=== PATIENT | male | born 1970 | race African-American/Black ===

== ENCOUNTER 2016-09-12 16:45 | Inpatient (IN) | payer BC, SELFPAY ==
--- NOTE | ~2016-09-12 | DS ---
Discharge Summary [id number] [place]. [address] NAME: KINGA DUDLEY : 72 STATUS : DIS IN PAT#: [id number] AGE: 46 ADM/REG DATE : 09/12/16 MR#: [id number] REPORT SERV DATE: 09/16/16 DICTATED BY: DATE: REPORT STATUS : Draft TRANSCRIBED BY: MODL DATE: 09/15/16 ADMISSION DATE: 09/12/2016 DISCHARGE DATE: 09/15/2016 DISCHARGE DIAGNOSES: 1. Clostridium difficile, first episode. 2. Chronic anemia. 3. Intermittent rectal bleeding. 4. Acute left upper quadrant abdominal pain, improving. 5. Chronic kidney disease, stage 3. 6. Hypertension. 7. Type 2 diabetes, non insulin dependent. 8. Chronic obstructive pulmonary disease. 9. History of seizures. CONSULTATION: NAWAF Huerta. PERTINENT TESTS AND PROCEDURES: 1. Chest x-ray, 09/12/2016; Impression: No acute process. Chronic eventration of right diaphragm. Lungs are clear. 2. CT of brain without contrast, 09/12/2016; Impression: Unremarkable noncontrast head CT. No acute intracranial pathology. 3. CT of abdomen and pelvis, 09/13/2016; Impression:. a. No evidence of acute abnormality within the abdomen or pelvis. b. Hepatomegaly. c. Left renal cyst. d. Postsurgical distortion of anterior abdominal wall. 4. Transthoracic echocardiography, 09/13/2016; Summary: Technically difficult study due to poor acoustic windows. Normal left ventricular systolic function with ejection fraction of 60% to 65%. Normal right ventricular chamber size and systolic function. No evidence of significant valvular regurgitation or stenosis. Atrial septal aneurysm without clear evidence of patent foramen ovale or atrial septal defect. 5. KUB, 09/14/2016, written report unavailable. Image reviewed by Dr. Roca. Impression: Unremarkable bowel gas pattern. HOSPITAL COURSE: Please refer to history and physical dated 09/12/[address] Lashawn Pugh for complete details pertaining to the patient's initial presentation upon admission and health history. Also refer to consultation dated 09/14/[address] Ileana Cisneros GI. Briefly, the patient is a 46-year-old male with a complex medical history to include chronic anemia with intermittent rectal bleeding, chronic diarrhea, COPD, seizures, hypertension, and chronic kidney disease stage 3. The patient presented to the emergency department on 09/12/2016 with complaints of chronic Discharge Summary [address] [place]. [address] NAME: KINGA DUDLEY : 72 STATUS : DIS IN PAT#: [id number] AGE: 46 ADM/REG DATE : 09/12/16 MR#: [id number] REPORT SERV DATE: 09/16/16 DICTATED BY: DATE: REPORT STATUS : Draft TRANSCRIBED BY: MODL DATE: 09/15/16 diarrhea, low blood pressure and increase in intermittent rectal bleeding. The patient was admitted for further evaluation and workup for likely GI bleed. 1. Clostridium difficile, first episode. The patient denied any recent use of antibiotics. The patient has suffered from chronic diarrhea since 2013 secondary to episode of severe pancreatitis with end-organ failure. The patient was started on p.o. Vancocin 125 mg p.o. every six hours and will continue this medication to complete a total 14-day course. The patient is to follow up with GI in two weeks for consideration of outpatient colonoscopy once infection has cleared. 2. Intermittent rectal bleeding. The patient has history of iron deficiency anemia in the setting of intermittent rectal bleeding. Past endoscopies have been nondiagnostic. The patient has not had any episodes of bleeding for the past 48 hours and Hemoccult during this admission was negative. Follow up in two weeks with GI. 3. Chronic anemia. The patient has longstanding history of chronic anemia. Hemoglobin and hematocrit have remained stable during this admission and no transfusions have been required. This will be managed per Nephrology and GI. 4. Chronic kidney disease, stage 3. The patient's creatinine during last office visit in July [address] Arteaga, Nephrology, was 2.2. The patient's creatinine is 1.73 and below baseline on day of discharge. The patient recently saw Dr. Arteaga in July and will follow up again in September. 5. Hypertension. The patient's blood pressure has remained controlled. Continue home medications. 6. Type 2 diabetes. The patient's A1c is 6.3, which is significant improvement from 13.0 in 2014. Continue home medications and follow up for routine management. 7. COPD. No signs or symptoms of acute exacerbation during this admission. The patient is seen by Dr. Flores, Pulmonology. Last office visit was in May 2016. The patient will follow up again in November. 8. History of seizures. The patient has a lifetime history of seizures with breakthrough seizures on current medication. The patient has not driven since the . There were no episodes during this admission. Follow up with Dr. Farfan, Neurology, as routinely scheduled. DISCHARGE CONDITION: At the time of discharge, the patient is hemodynamically stable. DISCHARGE DIET: ADA 1800 calorie diet. DISCHARGE MEDICATIONS: 1. Norvasc 10 mg tablet p.o. daily. 2. Wellbutrin SR 150 mg p.o. daily. 3. Cymbalta 60 mg tablet p.o. at bedtime as needed for insomnia per the patient's report. 4. Tegretol XR 400 mg tablet, take 800 mg twice daily. 5. Keppra 1000 mg tablet, take 1500 mg p.o. twice daily. 6. Fenofibrate 160 mg tablet p.o. daily. 7. Neurontin 800 mg tablet p.o. four times daily. 8. Synthroid 50 mcg tablet p.o. daily. 9. Lopressor 50 mg tablet p.o. twice daily. 10.Protonix 40 mg tablet p.o. twice daily. 11.Phenobarbital 32.4 mg tablet, take 129.6 mg p.o. at bedtime. Discharge Summary [address] [address] NAME: KINGA DUDLEY : 72 STATUS : DIS IN PAT#: [id number] AGE: 46 ADM/REG DATE : 09/12/16 MR#: [id number] REPORT SERV DATE: 09/16/16 DICTATED BY: DATE: REPORT STATUS : Draft TRANSCRIBED BY: MODL DATE: 09/15/16 12.Vancocin 125 mg capsules p.o. every six hours x14 days. 13.ProAir two puffs inhaled every four hours as needed for wheezing or shortness of breath. 14.Albuterol nebulizer treatment 3 times daily as needed. 15.Tylenol 650 mg p.o. every four hours as needed. 16.Glucophage 500 mg tablet p.o. twice daily. 17.Robaxin 750 mg tablet p.o. every six hours as needed. 18.Cozaar 100 mg tablet p.o. daily. 19.Fioricet 1 to 2 tablets p.o. every four hours as needed for headache. 20.Vitamin D 5000 units p.o. twice daily. 21.Magnesium oxide 400 mg tablet p.o. twice daily. 22.Percocet 10/325 mg tablet p.o. every six hours as needed. Hold for sedation. 23.Atarax 25 mg tablet p.o. every six hours as needed. 24.Invokana 300 mg tablet p.o. daily. 25.Creon 73668 unit capsule, take 227319 units p.o. three times daily with meals and twice daily with snacks. 26.Breo Ellipta 100/25 mcg inhaler one puff inhaled daily. DISCHARGE INSTRUCTIONS: 1. Follow up with Dr. Brock/Dr. Cisneros, GI, in two weeks for consideration of colonoscopy. 2. Follow up with Dr. Flores, Pulmonology, appointment already scheduled. 3. Follow up with Dr. Mohamud Arteaga, Nephrology, appointment already scheduled. 4. Follow up with Dr. Mullen, Neurology, in November. The patient was instructed to return to the emergency room for any acute onset of fever 100.4 or greater lasting more than one hour, recurrence of uncontrolled diarrhea, bright red blood per rectum, intractable nausea, vomiting, or any other concerns that are deviations from his baseline status at the time of this discharge. DICTATED BY: MILLA Gore/AURELIA MILLA Gore / [id number] CC: MD Kota Aden II, M.D. Henry Paik, M.D. Catherine Martinez, M.D. James Scott Manton, M.D. Discharge Summary [address] [address] NAME: KINGA DUDLEY : 72 STATUS : DIS IN PAT#: [id number] AGE: 46 ADM/REG DATE : 09/12/16 MR#: [id number] REPORT SERV DATE: 09/16/16 DICTATED BY: DATE: REPORT STATUS : Draft TRANSCRIBED BY: AURELIA DATE: 09/15/16 Mohamud Arteaga M.D. Ileana Cisneros MD
--- NOTE | ~2016-09-12 | HP ---
History And Physical [facility] [address] [place]. [address] NAME: KINGA DUDLEY : 72 STATUS : ADM IN [facility]#: [id number] AGE: 46 ADM/REG DATE : 09/12/16 MR#: [id number] REPORT SERV DATE: 09/12/16 DICTATED BY: LASHAWN BOLAÑOS DATE: 09/12/16 REPORT STATUS : Draft TRANSCRIBED BY: MODL DATE: 09/12/16 DATE OF ADMISSION: 09/12/2016 CHIEF COMPLAINT: Chronic diarrhea, reported low blood pressure, and intermittent rectal bleed. HISTORY OF PRESENT ILLNESS: This is a very pleasant 46-year-old gentleman. He has an extensive past medical history significant for history of hypertension and chronic kidney disease. He has history of severe pancreatitis, for which he has been admitted in 2014. He had multiorgan failure. At that time, has been tracked he had acute kidney injury requiring dialysis with chronic kidney disease, anemia, also hypertension with prior abdominal compartment syndrome, urinary tract infections, and also an incisional epigastric hernia repair presenting today to [facility] accompanied by his due to ongoing chronic diarrhea, weakness, as well as reported low blood pressure. The patient says that since prior surgery, but lately over the last couple of months, he has been experiencing intermittent episodes of rectal bleed. He has been scoped in 2015 for rectal bleed by Dr. Ileana Cisneros for Dr. Brock and at that time, the result of the colonoscopy showed some anal fissure, for which he has been treated symptomatically. Nevertheless, after talking with his primary care provider, the patient came to [facility] for further evaluation and treatment. He has been evaluated in the emergency room and after initial evaluation, Hospitalist Service has been asked for admission, further evaluation, and treatment. PAST MEDICAL HISTORY: Significant for prior history of severe pancreatitis with compartment syndrome; chronic kidney disease; prior history of UTI; diabetes type, not on insulin; seizure disorder, on multiple medications; hypertension; and anemia. PAST SURGICAL HISTORY: Includes prior exploratory laparotomy with compression of the abdomen, wound Vac-Pac exchange, also cholecystectomy. Also, he had an incisional hernia in the epigastrium that has been repaired with mesh. SOCIAL HISTORY: The patient has been denying tobacco, alcohol, or IV drugs. ALLERGIES: HE IS ALLERGIC TO INFLUENZA. MEDICATIONS: Medications at home include ProAir, albuterol, Norvasc, Fioricet, Wellbutrin, Invokana, Tegretol, vitamin D, Cymbalta, fenofibrate, Breo Ellipta, gabapentin, Atarax, Keppra, levothyroxine, losartan, magnesium oxide, metformin, methocarbamol, metoprolol, Percocet, Protonix, phenobarbital, and Creon. REVIEW OF SYSTEMS: A 14-point review of system has been obtained and pertinent positive has been listed into the history of present illness, otherwise negative except those underlying above. OBJECTIVE: VITAL SIGNS: The patient is afebrile, blood pressure 112/62, heart rate 75, respiratory rate 16, and saturating 100% on room air. GENERAL: He is a very pleasant, well-developed, well-nourished gentleman, in no acute History And Physical [address] [address] NAME: KINGA DUDLEY : 72 STATUS : ADM IN [facility]#: [id number] AGE: 46 ADM/REG DATE : 09/12/16 MR#: [id number] REPORT SERV DATE: 09/12/16 DICTATED BY: LASHAWN BOLAÑOS DATE: 09/12/16 REPORT STATUS : Draft TRANSCRIBED BY: AURELIA DATE: 09/12/16 distress. He is alert and oriented x3. Nonfocal. He follows all his commands appropriately. HEENT: Shows pupils equal, round, reactive to light. Extraocular movements intact. No JVD. No lymphadenopathy. No thyromegaly appreciated. CHEST: Eval shows bilateral air entry. Clear anteroposterior. No wheezes, crackles, or rhonchi appreciated. CARDIOVASCULAR: He is regular rate and rhythm. S1, S2 positive. No S3, no S4. No murmurs, rubs, or gallops appreciated. ABDOMEN: Soft, nontender. Nontender. No guarding. No rebound. Nondistended. Well-healed scars. EXTREMITIES: No clubbing, cyanosis, or edema. NEUROLOGIC: He is alert and oriented x3. He is nonfocal. He follows all his commands appropriately. LABORATORY DATA: Labs from today include sodium 134, potassium 4.9, chloride 99, CO2 of 29, BUN 19, creatinine is 2.34. His glucose is 127. His troponin is less than 0.02. His white count is 4.9, hemoglobin 9.2, hematocrit 31.7, platelets are 293. His INR is 1. The patient's UA has been negative and chest x-ray PA and lateral is pending. ASSESSMENT: This is a very pleasant 46 years old gentleman with: 1. Mild kgalf-aw-iqofxrd kidney disease. 2. Chronic diarrhea. 3. Anemia with reported intermittent rectal bleeds. 4. History of hypertension. 5. Diabetes type 2, noninsulin dependent. 6. History of seizure disorder reporting seizure uncontrolled even on current medications. 7. Anemia. 8. History of fibromyalgia. 9. History of hypothyroidism. PLAN: The patient is going to be admitted to Hospitalist Service regardin. His mild rknxr-mi-rdgyjwa kidney disease. We are going to give him IV fluids. We will hold his PAULA. We are going to check UA and urine culture. Check a CT of the abdomen and pelvis in the morning. Follow up the labs very closely. 2. Chronic diarrhea with reported intermittent rectal bleeds. We are going to keep him on clear liquid diet. H and H q.6 hours, and transfuse as indicated. Check all anemia studies. Guaiac all his stools. Place him on Protonix IV b.i.d. Check all his stools for fecal leukocytes, bacterial pathogen, C diff, ova and parasites, and consult Gastroenterology, Dr. Brock. 3. History of hypertension. Continue his home medications. The patient has been reported hypotensive today. That has been resolved. We are going to hold his PAULA and we are going to hydrate him and continue his blood pressure as tolerated. We are going to rule him out for WI by serial cardiac enzymes and serial EKG. 4. Diabetes type 2. We are going to hold oral medications and place him on sliding scale insulin subcutaneously level 1. 5. Anemia. We will check all his anemia studies and check vitamin B12 and folic acid. 6. History of hypothyroidism. Continue his home medication. Check a TSH and a free T4. History And Physical [address] [address] NAME: KINGA DUDLEY : 72 STATUS : ADM IN PAT#: [id number] AGE: 46 ADM/REG DATE : 09/12/16 MR#: [id number] REPORT SERV DATE: 09/12/16 DICTATED BY: LASHAWN BOLAÑOS DATE: 09/12/16 REPORT STATUS : Draft TRANSCRIBED BY: MODLam DATE: 09/12/16 7. History of seizure disorder. We will continue his home medications and are going to check a Tegretol and phenobarbital level, p.r.n. Ativan, and consult Neurology for further recommendation. We will provide reasonable pain and nausea control as well as GI and DVT prophylaxis with SCDs. This has been discussed extensively with the patient. All the questions have been answered in full. Further workup and recommendation pending above. It is worthwhile to note that the patient is going to be followed by Hospitalist Service. CF/AURELIA Lashawn Bolaños M.D. / [id number] CC: MD Kota Aden II, M.D.
--- NOTE | ~2016-09-12 | CN ---
Consultation Report [facility] [address] [place]. [address] NAME: KINGA SEVILLA : 72 STATUS : ADM IN PAT#: [id number] AGE: 46 ADM/REG DATE : 09/12/16 MR#: [id number] REPORT SERV DATE: 09/14/16 DICTATED BY: AVI BARRIENTOS DATE: 09/14/16 REPORT STATUS : Draft TRANSCRIBED BY: MODL DATE: 09/14/16 GI CONSULTATION NOTE DATE OF CONSULTATION: 09/13/2016 REASON FOR CONSULTATION: Rectal bleeding, diarrhea. HISTORY OF PRESENT ILLNESS: Mr. Sevilla is a 46-year-old black male with a history of chronic kidney disease, anemia, pancreatitis in the past who was initially admitted for bloody diarrhea. He had a normal white count at 4, hemoglobin and hematocrit of 9.1 and 31.6, platelets 285, INR at 1.1. He reports that he has had diarrhea off and on for few years and had actually been seen by Dr. Brock in 2014, in clinic and has had workup performed including endoscopy, which I have included in his patient chart. Colonoscopy up to the terminal ileum was normal with the exception of some hemorrhoids and anal fissure. No inflammation was seen at the time. He also had diarrhea and anemia, and biopsies were negative for microscopic colitis, celiac disease. Although per his H and P, there is mention of cholecystectomy, the patient denies having had his gallbladder removed. Of note, since admission his stool has come back positive for a C. difficile infection. Noncontrasted CT scan shows no bowel wall thickening or stranding. The patient has been ordered oral vancomycin, which he has yet to start. PAST MEDICAL HISTORY: Hypertension, chronic kidney disease, pancreatitis, urinary tract infection, diabetes, seizure disorder. PAST SURGICAL HISTORY: Exploratory laparotomy?, cholecystectomy, hernia surgery. SOCIAL HISTORY: No smoking, alcohol, or drug use. FAMILY HISTORY: Noncontributory. No history of inflammatory bowel disease. MEDICATIONS: Reviewed. ALLERGIES: REVIEWED. PHYSICAL EXAMINATION: VITAL SIGNS: The patient is afebrile. Vital signs are stable. GENERAL: The patient is awake, alert, and oriented x3. Well developed, well nourished, in no acute distress. HEENT: Atraumatic, normocephalic. Anicteric. Mucous membranes moist. CARDIAC: S1, S2. CHEST: Clear to auscultation bilaterally. ABDOMEN: Soft, nondistended, tender to palpation, however, mostly in the left abdomen without rebound or guarding. Bowel sounds normoactive. Consultation Report [facility] [address] [place]. [address] NAME: KINGA SEVILLA : 72 STATUS : ADM IN PAT#: [id number] AGE: 46 ADM/REG DATE : 09/12/16 MR#: [id number] REPORT SERV DATE: 09/14/16 DICTATED BY: AVI BARRIENTOS DATE: 09/14/16 REPORT STATUS : Draft TRANSCRIBED BY: MODLam DATE: 09/14/16 LABORATORY DATA: Show WBC 4, hemoglobin 9.1, hematocrit 31.6, platelets 285, INR is 1.1. TIBC is 593, ferritin is 6, sodium 131, potassium 4.3, chloride 98, bicarb 26, BUN 17, creatinine 2.04, glucose 101. Liver enzymes normal. Non-contrasted CT scan as dictated above. C. difficile positive. Stool cultures pending. FOB is negative. IMPRESSION AND PLAN: Diarrhea and bleeding likely secondary to Clostridium difficile infection. The patient has been ordered oral vancomycin, would treat for at least 2 weeks. The patient reports more chronicity of his diarrhea, however, would need to treat his acute infection before undergoing workup for chronic diarrhea. I have reviewed his endoscopies and pathology and have placed him in the patient's chart. May consider diagnosis of pancreatic insufficiency given his history of very severe pancreatitis a couple of years ago. Also may consider bile acid diarrhea as being a possible contributor to his diarrhea symptoms. Please call with any questions. He should follow up in our clinic in 2 weeks after discharge and we will consider outpatient colonoscopy at that time. EBONI/AURELIA Avi Barrientos MD / [id number] CC: MD Kota Aden II, M.D.
[2016-09-12 14:02] LABS: BASOPHILS 0.6 %; BASOPHILS ABSOLUTE 0.03 10/3/uL (0.0-0.16); EOSINOPHILS ABSOLUTE 0.05 10/3/uL (0.0-0.53); HEMATOCRIT 31.7 % (40.0-51.0); HEMOGLOBIN 9.2 g/dL (13.6-17.8); IMMATURE GRANULOCYTES 0.2 %; IMMATURE GRANULOCYTES ABSOLUTE 0.01 10/3/uL (0.0-0.11); LYMPHOCYTES ABSOLUTE 1.63 10/3/uL (0.67-4.30); MANUAL DIFF NO %; MEAN CORPUSCULAR HEMOGLOB 17.4 pg (26.0-34.0); MEAN PLATELET VOLUME 8.7 fL (9.2-13.0); MONOCYTES 4.9 %; MONOCYTES ABSOLUTE 0.24 10/3/uL (0.21-1.20); NEUTROPHILS 60.3 %; NEUTROPHILS ABSOLUTE 2.98 10/3/uL (2.02-8.40); PLATELET COUNT 293 10/3/uL (150-400); RED CELL COUNT 5.28 10/6/uL (4.7-6.1); WHITE BLOOD CELLS 4.9 10/3/uL (4.5-10.5)
[2016-09-12 14:10] LABS: PARTIAL THROMBO TIME 25.5 SEC (22.5-37.2); PROTIME (NOT ORD) 13.4 SEC (12.0-14.5)
[2016-09-12 14:18] LABS: ANISOCYTOSIS 1+ (5-10/OIF) (0-5/OIF); CALCIUM, SERUM 9.7 MG/DL (8.5-10.4); CHEST PAIN PROFILE TAT 0 Hrs 22 Mins; CHLORIDE, SERUM 99 MMOL/L (96-112); CO2 (CARBON DIOXIDE) 28 MMOL/L (24-34); CREATININE 2.34 MG/DL (0.70-1.30); GFR AFRICAN AMERICAN 38 ML/MIN (>=60); GFR NON AFRICAN AMERICAN 32 ML/MIN (>=60); GLUCOSE, SERUM 127 MG/DL (60-99); HYPOCHROMIA 3+ (>30/OIF) (0-2/OIF); MICROCYTES 4+ (>50/OIF) (0-5/OIF); PLATELET ESTIMATE ADQ (ADEQUATE); POTASSIUM, SERUM 4.9 MMOL/L (3.5-5.3); RBC MORPHOLOGY ABN (NORMAL); SODIUM, SERUM 134 MMOL/L (135-148); TROPONIN I <0.02 NG/ML (<0.05)
[2016-09-12 14:19] LABS: BUN (BLOOD UREA NITROGEN) 19 MG/DL (6-23); TEARDROP SHAPED RBCS FEW (3-10/OIF)
[2016-09-12 14:29] LABS: ASCORBIC ACID (UR NOT ORDER) NEG (NEG); BILIRUBIN, URINE NEGATIVE (NEG); ER URINALYSIS TAT 0 Hrs 33 Mins; KETONE, URINE NEGATIVE (NEG); LEUKOCYTE ESTERASE(NOT OR NEG (NEG); NITRITE (URINE) NEG (NEG); WBC (NOT ORDERED) (RFLEX) 1 (0-5)
[~2016-09-12 16:45] MED LIST: *UNABLE3; AT25 PO; ATV.5 PO; BREO ELLIPTA INH; COZAAR100 MG PO; CREON24000 UNT PO; DEPAKOT500 PO; DEPAKOTEER PO; DIL2TAB PO; DIL4TAB PO; GLUCPH PO; INVOKANA300 MG PO; KEPPRA500 PO; LEVOTHROID50 MCG PO; LEVOTHYROXIN50 MCG PO; LEXAPRO10 PO; LOFIB160 PO; LOP50 PO; MAGOX4 PO; METHOC750B PO; NEUR600 PO; NEUR800 PO; NORCO1 TAB PO; NORV10 PO; PB30 PO; PHENOBARB32.4 MG PO; PHENOBARBITAL PO; PR25 PO; PROAIR HFA INH; PROTONIX PO; PROVENT20 INH; SYMBICORT 160/41 INH INH; TEGRETOL XR400 MG PO; VITD PO; WELLSR150 PO
[2016-09-12] MEDS ORDERED: COZAAR100 MG PO (17:03)
[2016-09-12] MEDS ORDERED: FIORICET 50-301 EACH PO (17:05)
[2016-09-12] MEDS ORDERED: VITD PO (17:06)
[2016-09-12] MEDS ORDERED: NORV10 PO (17:06)
[2016-09-12] MEDS ORDERED: LOFIB160 PO (17:07)
[2016-09-12] MEDS ORDERED: MAGOX4 PO (17:07)
[2016-09-12] MEDS ORDERED: TEGRETOL XR400 MG PO (17:07)
[2016-09-12] MEDS ORDERED: NEUR800 PO (17:07)
[2016-09-12] MEDS ORDERED: METHOC750B PO (17:08)
[2016-09-12] MEDS ORDERED: PERCOCET 10/3251 TAB PO (17:08)
[2016-09-12] MEDS ORDERED: AT25 PO (17:08)
[2016-09-12] MEDS ORDERED: KEPPRA1000 MG PO (17:09)
[2016-09-12] MEDS ORDERED: PHENOBARB32.4 MG PO (17:10)
[2016-09-12] MEDS ORDERED: GLUCPH PO (17:11)
[2016-09-12] MEDS ORDERED: LOP50 PO (17:11)
[2016-09-12] MEDS ORDERED: SYN.05 PO (17:11)
[2016-09-12] MEDS ORDERED: PROTONIX PO (17:12)
[2016-09-12] MEDS ORDERED: INVOKANA300 MG PO (17:12)
[2016-09-12] MEDS ORDERED: PANCRELIPASE 24000 UNIT PO ×2 (17:14)
[2016-09-12] MEDS ORDERED: BREO ELLIPTA INH (17:14)
[2016-09-12] MEDS ORDERED: WELLSR150 PO (17:15)
[2016-09-12] MEDS ORDERED: PROAIR HFA INH (17:15)
[2016-09-12] MEDS ORDERED: ALBUTEROL0.083 % INH (17:16)
[2016-09-12] MEDS ORDERED: CYMBALTA60 PO (17:16)
[2016-09-12 21:06] LABS: ACETAMINOPHEN LEVEL (TYLENOL) < 2.0 MCG/ML (10.0-20.0); ALCOHOL < 10 MG/DL (0); SALICYLATE 1.8 MG/DL (-)
[2016-09-12 22:00] LABS: HEMATOCRIT 31.4 % (40.0-51.0); HEMOGLOBIN 9.2 g/dL (13.6-17.8)
[2016-09-12 22:17] LABS: TROPONIN I <0.02 NG/ML (<0.05)
[2016-09-12 22:18] LABS: CK-MB 1.1 NG/ML; CPK 183 U/L (0-200)
[2016-09-13 07:21] LABS: BASOPHILS ABSOLUTE 0.04 10/3/uL (0.0-0.16); EOSINOPHILS 1.7 %; EOSINOPHILS ABSOLUTE 0.07 10/3/uL (0.0-0.53); HEMATOCRIT 30.5 % (40.0-51.0); HEMOGLOBIN 8.8 g/dL (13.6-17.8); LYMPHOCYTES 47.5 %; LYMPHOCYTES ABSOLUTE 1.91 10/3/uL (0.67-4.30); MEAN CORPUS HGB CONC 28.9 g/dL (32.0-36.0); MEAN CORPUSCULAR HEMOGLOB 17.2 pg (26.0-34.0); MEAN CORPUSCULAR VOLUME 59.6 fL (80-100); MONOCYTES ABSOLUTE 0.24 10/3/uL (0.21-1.20); NEUTROPHILS 43.8 %; NEUTROPHILS ABSOLUTE 1.76 10/3/uL (2.02-8.40); PLATELET COUNT 285 10/3/uL (150-400); RBC DISTRIBUTION WIDTH 16.9 % (12.0-16.0); RED CELL COUNT 5.12 10/6/uL (4.7-6.1)
[2016-09-13 07:22] LABS: MANUAL DIFF NO %
[2016-09-13 07:26] LABS: INTERNATIONAL NORMAL RATI 1.1 UNITS (-); PROTIME (NOT ORD) 14.2 SEC (12.0-14.5)
[2016-09-13 07:40] LABS: TROPONIN I <0.02 NG/ML (<0.05)
[2016-09-13 07:41] LABS: CPK 159 U/L (0-200)
[2016-09-13 07:48] LABS: GLYCOHEMOGLOBIN (HbA1c) 6.3 % (4.7-6.1)
[2016-09-13 07:52] LABS: A/G RATIO 1.1 (0.7-1.9); ALBUMIN 3.8 G/DL (3.5-5.0); BUN (BLOOD UREA NITROGEN) 17 MG/DL (6-23); CALCIUM, SERUM 8.9 MG/DL (8.5-10.4); CHLORIDE, SERUM 98 MMOL/L (96-112); CO2 (CARBON DIOXIDE) 26 MMOL/L (24-34); CREATININE 2.04 MG/DL (0.70-1.30); FERRITIN 6 NG/ML (26-388); GFR AFRICAN AMERICAN 44 ML/MIN (>=60); GFR NON AFRICAN AMERICAN 38 ML/MIN (>=60); GLOBULIN 3.4 G/DL (2.5-4.1); IRON BINDING CAPACITY 593 MCG/DL (250-450); IRON, SERUM 29 MCG/DL (35-150); PHOSPHORUS, SERUM 3.2 MG/DL (2.5-4.5); POTASSIUM, SERUM 4.3 MMOL/L (3.5-5.3); SGOT(AST) 24 U/L (5-40); SGPT(ALT) 28 U/L (5-65); SODIUM, SERUM 131 MMOL/L (135-148); TOTAL PROTEIN 7.2 G/DL (6.0-8.5)
[2016-09-13 07:53] LABS: ALKALINE PHOSPHATASE 50 U/L (45-117); DIRECT BILIRUBIN < 0.1 MG/DL (0.0-0.4); FOLATE 19.1 NG/ML (>5.2); GLUCOSE, SERUM 101 MG/DL (60-99); INDIRECT BILIRUBIN(NOT ORDER) 0.2 MG/DL (0.1-0.9); TOTAL BILIRUBIN 0.3 MG/DL (0-1.2)
[2016-09-13 08:13] LABS: CREATININE, URINE 44.7 MG/DL
[2016-09-13 08:15] LABS: CREATININE, URINE 55.3 MG/DL
[2016-09-13 08:22] LABS: HELMET CELLS OCC (0-2/OIF); MICROCYTES 4+ (>50/OIF) (0-5/OIF); PLATELET ESTIMATE ADQ (ADEQUATE); POIKILOCYTOSIS 1+ (5-10/OIF) (0-5/OIF)
[2016-09-13 10:30] LABS: CREATININE, URINE 31.4 MG/DL
[2016-09-13 12:04] LABS: HEMATOCRIT 33.8 % (40.0-51.0); HEMOGLOBIN 10.1 g/dL (13.6-17.8)
[2016-09-13 12:43] LABS: WBC (NOT ORDERED) (RFLEX) 0 (0-5)
[2016-09-13 12:48] LABS: ASCORBIC ACID (UR NOT ORDER) NEG (NEG); BILIRUBIN, URINE NEGATIVE (NEG); KETONE, URINE NEGATIVE (NEG); LEUKOCYTE ESTERASE(NOT OR NEG (NEG)
[2016-09-13 14:53] LABS: B NATRIURETIC PEPTIDE (BNP) 31.2 PG/ML (< 100.0)
[2016-09-13 15:19] LABS: CK-MB 0.6 NG/ML; CPK 175 U/L (0-200); TROPONIN I <0.02 NG/ML (<0.05)
[2016-09-13 15:28] LABS: ASCORBIC ACID (UR NOT ORDER) NEG (NEG); BILIRUBIN, URINE NEGATIVE (NEG); KETONE, URINE NEGATIVE (NEG); LEUKOCYTE ESTERASE(NOT OR NEG (NEG); WBC (NOT ORDERED) (RFLEX) < 1 (0-5)
[2016-09-13 17:11] LABS: HEMATOCRIT 31.6 % (40.0-51.0); HEMOGLOBIN 9.1 g/dL (13.6-17.8)
[2016-09-14 07:37] LABS: ALBUMIN 3.7 G/DL (3.5-5.0); BUN (BLOOD UREA NITROGEN) 16 MG/DL (6-23); CALCIUM, SERUM 8.7 MG/DL (8.5-10.4); CHLORIDE, SERUM 98 MMOL/L (96-112); CO2 (CARBON DIOXIDE) 26 MMOL/L (24-34); CREATININE 1.86 MG/DL (0.70-1.30); GFR AFRICAN AMERICAN 50 ML/MIN (>=60); GFR NON AFRICAN AMERICAN 43 ML/MIN (>=60); GLUCOSE, SERUM 105 MG/DL (60-99); PHOSPHORUS, SERUM 3.3 MG/DL (2.5-4.5); POTASSIUM, SERUM 4.1 MMOL/L (3.5-5.3); SODIUM, SERUM 133 MMOL/L (135-148)
[2016-09-14 07:54] LABS: BASOPHILS 0.7 %; BASOPHILS ABSOLUTE 0.03 10/3/uL (0.0-0.16); EOSINOPHILS 2.1 %; EOSINOPHILS ABSOLUTE 0.09 10/3/uL (0.0-0.53); HEMATOCRIT 30.5 % (40.0-51.0); HEMOGLOBIN 8.8 g/dL (13.6-17.8); LYMPHOCYTES 48.3 %; LYMPHOCYTES ABSOLUTE 2.04 10/3/uL (0.67-4.30); MEAN CORPUS HGB CONC 28.9 g/dL (32.0-36.0); MEAN CORPUSCULAR HEMOGLOB 17.1 pg (26.0-34.0); MEAN CORPUSCULAR VOLUME 59.1 fL (80-100); MONOCYTES 7.3 %; MONOCYTES ABSOLUTE 0.31 10/3/uL (0.21-1.20); NEUTROPHILS 41.6 %; NEUTROPHILS ABSOLUTE 1.75 10/3/uL (2.02-8.40); PLATELET COUNT 227 10/3/uL (150-400); RBC DISTRIBUTION WIDTH 16.8 % (12.0-16.0); RED CELL COUNT 5.16 10/6/uL (4.7-6.1); WHITE BLOOD CELLS 4.2 10/3/uL (4.5-10.5)
[2016-09-14 07:55] LABS: MANUAL DIFF NO %; MEAN PLATELET VOLUME 9.3 fL (9.2-13.0)
[2016-09-14 08:17] LABS: HYPOCHROMIA 3+ (>30/OIF) (0-2/OIF); MICROCYTES 4+ (>50/OIF) (0-5/OIF); OVALOCYTES 1+ (3-10/OIF) (0-2/OIF); PLATELET ESTIMATE ADQ (ADEQUATE); RBC MORPHOLOGY ABN (NORMAL); TEARDROP SHAPED RBCS OCC (0-2/OIF)
[2016-09-15 05:57] LABS: ALBUMIN 3.5 G/DL (3.5-5.0); ALKALINE PHOSPHATASE 50 U/L (45-117); BUN (BLOOD UREA NITROGEN) 16 MG/DL (6-23); CALCIUM, SERUM 8.4 MG/DL (8.5-10.4); CHLORIDE, SERUM 99 MMOL/L (96-112); CO2 (CARBON DIOXIDE) 24 MMOL/L (24-34); CREATININE 1.73 MG/DL (0.70-1.30); GFR AFRICAN AMERICAN 54 ML/MIN (>=60); GFR NON AFRICAN AMERICAN 47 ML/MIN (>=60); GLUCOSE, SERUM 105 MG/DL (60-99); PHOSPHORUS, SERUM 2.9 MG/DL (2.5-4.5); POTASSIUM, SERUM 4.2 MMOL/L (3.5-5.3); SGOT(AST) 18 U/L (5-40); SGPT(ALT) 23 U/L (5-65); SODIUM, SERUM 133 MMOL/L (135-148); TOTAL BILIRUBIN 0.3 MG/DL (0-1.2)
[2016-09-15 06:00] LABS: DIRECT BILIRUBIN < 0.1 MG/DL (0.0-0.4); INDIRECT BILIRUBIN(NOT ORDER) 0.2 MG/DL (0.1-0.9)
[2016-09-15 06:03] LABS: BASOPHILS 0.6 %; BASOPHILS ABSOLUTE 0.03 10/3/uL (0.0-0.16); EOSINOPHILS 2.7 %; EOSINOPHILS ABSOLUTE 0.13 10/3/uL (0.0-0.53); HEMATOCRIT 28.5 % (40.0-51.0); HEMOGLOBIN 8.5 g/dL (13.6-17.8); IMMATURE GRANULOCYTES 0.2 %; IMMATURE GRANULOCYTES ABSOLUTE 0.01 10/3/uL (0.0-0.11); LYMPHOCYTES 37.1 %; LYMPHOCYTES ABSOLUTE 1.78 10/3/uL (0.67-4.30); MANUAL DIFF NO %; MEAN CORPUS HGB CONC 29.8 g/dL (32.0-36.0); MEAN CORPUSCULAR HEMOGLOB 17.5 pg (26.0-34.0); MEAN CORPUSCULAR VOLUME 58.8 fL (80-100); MONOCYTES 5.8 %; MONOCYTES ABSOLUTE 0.28 10/3/uL (0.21-1.20); NEUTROPHILS 53.6 %; NEUTROPHILS ABSOLUTE 2.57 10/3/uL (2.02-8.40); PLATELET COUNT 214 10/3/uL (150-400); RBC DISTRIBUTION WIDTH 16.5 % (12.0-16.0); RED CELL COUNT 4.85 10/6/uL (4.7-6.1); WHITE BLOOD CELLS 4.8 10/3/uL (4.5-10.5)
[2016-09-15 06:50] LABS: MICROCYTES 4+ (>50/OIF) (0-5/OIF); PLATELET ESTIMATE ADQ (ADEQUATE); TEARDROP SHAPED RBCS FEW (3-10/OIF)
[2016-09-15] MEDS ORDERED: VANCOCIN HCL125 MG PO (10:22)
[2016-10-30] MEDS ORDERED: EZFE 200200 MG PO (11:36)
== END 2016-09-15 14:08 | disposition home or self-care (01) | DRG 371 ==
LOC: ER 16:45 → 5NO 19:14 → 7NO 19:20
PROVIDERS: Emergency Medicine; Internal Medicine; Nurse Practitioner Family
DX: A04.7 Enterocolitis due to Clostridium difficile (principal); N17.0 Acute kidney failure with tubular necrosis; E11.22 Type 2 diabetes mellitus with diabetic chronic kidney disease; D50.9 Iron deficiency anemia, unspecified; N18.3 Chronic kidney disease, stage 3 (moderate); E78.5 Hyperlipidemia, unspecified; I12.9 Hypertensive chronic kidney disease with stage 1 through stage 4 chronic kidney disease, or unspecified chronic kidney disease; J44.9 Chronic obstructive pulmonary disease, unspecified; G40.909 Epilepsy, unspecified, not intractable, without status epilepticus; M79.7 Fibromyalgia; R19.7 Diarrhea, unspecified; Z79.84 Long term (current) use of oral hypoglycemic drugs; Z87.440 Personal history of urinary (tract) infections
CPT/HCPCS: 36415; 70450; 71020; 74000; 74176; 80048; 80053; 80069; 80076; 80156; 80184; 80307; 81001; 82140; 82150; 82248; 82272; 82550; 82553; 82570; 82607; 82728; 82746; 82962; 83036; 83540; 83550; 83615; 83690; 83735; 83880; 83935; 84100; 84300; 84439; 84443; 84484; 85014; 85018; 85025; 85610; 85730; 86850; 86900; 86901; 87045; 87046; 87046-59; 87328; 87329; 87493; 87493-59; 87899; 87899-59; 89055; 93005; 94640; 96360; 99285; A9270-GY; C8929; C9113; Q9957